=== PATIENT | female | born 1990 | race Caucasian/White ===

== ENCOUNTER 2017-11-25 07:54 | Day surgery (SDC) | payer OTHER ==
[~2017-11-25] VITALS: Ht 160 cm; Wt 71.8 kg
[~2017-11-25 07:54] MED LIST: ALBU8.5H8 IH; FentaNYL CITRATE-PF 100 MCG/2 ML VIAL ONE; MIDAZOLAM HCL 2 MG/2 ML VIAL ONE; MULT-1203 PO; OMEP20 PO; SODIUM CHLORIDE 0.9% 1,000 ML IV ONE; SUCR1TAB PO
[2017-11-25] MEDS ORDERED: LIDOCAINE HCL 4% 50 ML SOLUTION TP ONE (07:55)
[2017-11-25] MEDS ORDERED: LIDOCAINE HCL 2% 30 ML JELLY TP ONE (07:55)
[2017-11-25] MEDS ORDERED: BENZOCAINE 20% 50 MCG/SPRAY 57 GM TP ONE (07:55)
[2017-11-25] MEDS ORDERED: SODIUM CHLORIDE 0.9% 1,000 ML IV ONE (08:00)
== END 2017-11-25 09:35 | disposition home or self-care (01) ==
LOC: SURGERY 07:54
PROVIDERS: ATTEND Internal Medicine Critical Care Medicine
DX: J38.4 Edema of larynx (principal); K21.9 Gastro-esophageal reflux disease without esophagitis; Z98.890 Other specified postprocedural states; Z79.899 Other long term (current) drug therapy
CPT/HCPCS: 31623; 31624; 84703; 87015; 87070; 87077; 87186; 87205; 87220; 88108; 88312; J2250; J3010; J7030